=== PATIENT | female | born 1970 | race Caucasian/White ===

== ENCOUNTER → 2020-02-11 | Outpatient (CLI) | payer OTHER ==
[2020-02-11 13:54] VITALS: BP 140/86; PULSE 80; TEMP 98.1; BMI 36.6
--- NOTE | 2020-02-11 15:26 | FL ---
Barium swallow HISTORY: Dysphasia 1 minutes fluoroscopy time, 9 intraoperative images document the procedure Patient was given 1 ounce of Visipaque orally and attention was directed to the esophagus and surgica l bed. There is no obstruction to flow. No extrinsic or intrinsic esophageal lesion. Patient shows post maurizio buzz sleeve change. No evident leak. Surgical clips incidentally noted in the right upper quadrant. IMPRESSION: Postop changes. No obstruction or leak.
--- NOTE | 2020-02-11 15:56 | P.HPBAR ---
Bariatric H&P - History & Physicial H&P Date: 02/11/20 History & Physicial: Visit/CC: sleeve follow up Patient initial contact: Initial weight: Initial weight in pounds: Height: 5 ft 3 in Initial BMI: Last weight: Current weight: 93.894 kg Current weight in pounds: 207.00 Current BMI: 36.6 [place] body weight (based on NIH guidelines): 52.163 kg Excess body weight loss: The patient is a 49 year-old F who presents for Bariatric Assessment. Patient presents today for sleeve gastrectomy follow-up. She is not been seen many years. She doesn't know when her sleeve was performed. She's had some mild GERD. Past Medical History Past Medical History: Cancer, Diabetes Mellitus Additional Past Medical History / Comment(s): Patient reports she had a benign tumor on her right breast that resulted in a lumpectomy. History of Any Multi-Drug Resistant Organisms: None Reported Past Surgical History: Bariatric Surgery, Breast Surgery, Cholecystectomy, Orthopedic Surgery, Tubal Ligation Additional Past Surgical History / Comment(s): Lap Band in 2011, Gallbladder removal, Right breast lumpectomy, left shoulder surgery. left knee surgery l thumb surgery lap band removal/sleeve gastrectomy Past Anesthesia/Blood Transfusion Reactions: No Reported Reaction Past Psychological History: Anxiety, Depression Smoking Status: Never smoker Past Alcohol Use History: None Reported Past Drug Use History: None Reported Surgical - Exam Vital Signs Temp Pulse BP 98.1 F 80 140/86 02/11/20 13:51 02/11/20 13:51 02/11/20 13:51 - General well developed, well nourished, no distress - Eyes PERRL - ENT normal pinna - Neck no masses - Respiratory normal expansion - Cardiovascular Rhythm: regular - Abdomen Abdomen: soft, non tender Bariatric Assessment & Plan Plan: Status post sleeve yesterday. Patient is unable to give any medical history of what her sleeve was performed. The patient will undergo esophagram and EGD. She'll follow-up in clinic in 4 weeks. Patient's upper GI was reviewed. Her sleeve appears to be without evidence of obstruction. She'll be scheduled for EGD and HIDA scan Bariatric Checklist Checklist: Plan: Checklist: EGD: 1. Hiatal hernia: 2. H. Pylori: HgbA1c: Vitamin D: Smoking: Never smoker Primary care physician referral: cuca teresa Psychiatry clearance: Cardiology clearance: Sleep study: Diet journal: VTE risk score: VTE risk level: Rehab needs at discharge:
== END | disposition home or self-care (01) ==
LOC: BARWHC3 13:32
PROVIDERS: ATTEND Surgery
DX: Z48.815 Encounter for surgical aftercare following surgery on the digestive system (principal); Z90.49 Acquired absence of other specified parts of digestive tract; K21.9 Gastro-esophageal reflux disease without esophagitis; R13.10 Dysphagia, unspecified; Z98.84 Bariatric surgery status; Z98.51 Tubal ligation status; Z98.890 Other specified postprocedural states
CPT/HCPCS: 74220; G0463; 99211

== ENCOUNTER 2020-02-28 10:34 | Day surgery (SDC) | payer OTHER ==
[2020-02-27 09:38] VITALS: BMI 35.4
[~2020-02-28 10:34] MED LIST: LACTATED RINGERS 1,000 ML IV SCH
[2020-02-28] MEDS ORDERED: LACTATED RINGERS 1,000 ML IV ONE (10:47)
[2020-02-28 10:58] VITALS: RESP 16; TEMP 98.1
[2020-02-28] MEDS ORDERED: fentaNYL (PF) 50 MCG/ML 2 ML AMP ONE (11:21)
[2020-02-28] MEDS ORDERED: MIDAZOLAM 2 MG/2 ML VIAL ONE (11:21)
[2020-02-28] MEDS ORDERED: PROPOFOL 10 MG/ML 20 ML VIAL IV ONE (11:21)
--- NOTE | 2020-02-28 11:23 | P.GSHP ---
History of Present Illness H&P Date: 02/28/20 Chief Complaint: GERD, morbid obesity Is a 49-year-old female presents today for EGD. Patient currently undergoing workup for sleeve gastrectomy. She's had with GERD. Her BMI is 36 Past Medical History Past Medical History: Hyperlipidemia, Hypertension Additional Past Medical History / Comment(s): Patient reports she had a benign tumor on her right breast that resulted in a lumpectomy. History of Any Multi-Drug Resistant Organisms: None Reported Past Surgical History: Bariatric Surgery, Breast Surgery, Cholecystectomy, Orthopedic Surgery, Tubal Ligation Additional Past Surgical History / Comment(s): Lap Band in 2011, , Right breast lumpectomy, left shoulder surgery. left knee surgery, LT thumb surgery, lap band removal/sleeve gastrectomy Past Anesthesia/Blood Transfusion Reactions: No Reported Reaction Smoking Status: Never smoker - Past Family History Mother Family Medical History: No Reported History Medications and Allergies Home Medications Medication Instructions Recorded Confirmed Type ARIPiprazole [Abilify] 10 mg PO DAILY #30 tab 03/04/14 02/28/20 Rx Benztropine Mesylate [Cogentin] 0.5 mg PO DAILY 02/27/20 02/28/20 History Cholecalciferol [Vitamin D3 (25 2,000 unit PO DAILY 02/27/20 02/28/20 History Mcg = 1000 Iu)] Doxepin HCl 50 mg PO HS 02/27/20 02/28/20 History FLUoxetine HCL [PROzac] 80 mg PO DAILY 02/27/20 02/28/20 History Losartan [Cozaar] 25 mg PO DAILY 02/27/20 02/28/20 History Simvastatin [Zocor] 5 mg PO DAILY 02/27/20 02/28/20 History buPROPion XL [Wellbutrin Xl] 150 mg PO DAILY 02/27/20 02/28/20 History Allergies Allergy/AdvReac Type Severity Reaction Status Date / Time citalopram hydrobromide Allergy SUICIDAL Verified 02/28/20 10:59 [From Celexa] naltrexone HCl [From Revia] Allergy Rash/Hives Verified 02/28/20 10:59 nitrofurantoin Allergy FACE Verified 02/28/20 10:59 [From Macrobid] SWELLING nitrofurantoin Allergy FACE Verified 02/28/20 10:59 macrocrystalline SWELLING [From Macrobid] Surgical - Exam Vital Signs Temp Pulse Resp BP Pulse Ox 98.1 F 71 16 139/60 96 02/28/20 10:57 02/28/20 10:57 02/28/20 10:57 02/28/20 10:57 02/28/20 10:57 - General well developed, well nourished, no distress - Eyes PERRL - ENT normal pinna - Neck no masses - Respiratory normal expansion - Cardiovascular Rhythm: regular - Abdomen Abdomen: soft, non tender Assessment and Plan Assessment: GERD Morbid obesity We'll perform EGD.
--- NOTE | 2020-02-28 11:32 | P.OP ---
Date of Procedure: 02/28/20 Preoperative Diagnosis: GERD Postoperative Diagnosis: mild antral gastritis Mild esophagitis No evidence of sleeve stricture Procedure(s) Performed: EGD Anesthesia: MAC Surgeon: Jonnie Rosario Pathology: other (Antrum, esophagus) Condition: stable Disposition: PACU Description of Procedure: The patient's placed on the endoscopy table in the lateral position. She received IV sedation. The gastro-placed oropharynx passed in the esophagus and stomach. Scope was then placed through the pylorus. First and second portion of the duodenum appeared normal. Scope was brought back the antrum this appeared mildly inflamed. A biopsies performed. Scope was then brought back through the gastric sleeve. There is known to obstruction or stricture the sleeve. The GE junction was at 40 cms. The distal esophagus appeared inflamed a biopsies performed. The proximal esophagus appeared normal. Scope was brought patient.
[2020-02-28] MEDS ORDERED: IV FLUID CONTINUATION 1,000 ML IV ONE (11:36)
[2020-02-28 11:45] VITALS: BP 132/83
[2020-02-28 11:57] VITALS: PULSE 76
--- NOTE | 2020-03-03 09:01 | CDI ---
Date: 03.03.20 CDS/Barn Hand Name: Livier Copeland Phone: If any questions, call Jolynn Bean Director Of People at [phone] Patient Name: Sienna Walker Admit Date: 02.28.20 Discharge Date: 02.28.20 ATTENTION: The [facility] Coding Staff appreciate your assistance in clarifying documentation. Please respond to the clarification below the line at the bottom and electronically sign. The [facility] Coding staff will review the response and follow-up if needed. Please note: Queries are made part of the Legal Health Record. If you have any questions, please contact the Director Of People. Dear In your documentation for the colonoscopy, you only documented There is known to obstruction or stricture the sleeve. Please clarify whether there were obstructions or strictures. Thank you for your kind consideration. \ There was no obstruction of the sleeve on EGD. MTDD
== END 2020-02-28 12:42 | disposition home or self-care (01) ==
LOC: ORWHC2ENDO 10:34
PROVIDERS: ATTEND Surgery
DX: K21.0 Gastro-esophageal reflux disease with esophagitis (principal); K29.50 Unspecified chronic gastritis without bleeding; R89.7 Abnormal histological findings in specimens from other organs, systems and tissues; E11.9 Type 2 diabetes mellitus without complications; E78.5 Hyperlipidemia, unspecified; I10 Essential (primary) hypertension; K08.109 Complete loss of teeth, unspecified cause, unspecified class; F41.9 Anxiety disorder, unspecified; F32.9 Major depressive disorder, single episode, unspecified; E66.01 Morbid (severe) obesity due to excess calories; Z68.36 Body mass index [BMI] 36.0-36.9, adult; Z98.84 Bariatric surgery status; Z88.8 Allergy status to other drugs, medicaments and biological substances; Z88.1 Allergy status to other antibiotic agents; Z98.890 Other specified postprocedural states; Z90.49 Acquired absence of other specified parts of digestive tract; Z98.51 Tubal ligation status; Z79.899 Other long term (current) drug therapy
CPT/HCPCS: 81025; 88305; 43239; J2250; J3010; J2704

== ENCOUNTER → 2020-03-17 | Outpatient (CLI) | payer OTHER ==
[2020-03-17 13:06] VITALS: BP 141/83; PULSE 76; RESP 18; TEMP 98.1; BMI 36.1
--- NOTE | 2020-03-17 14:14 | P.HPBAR ---
Bariatric H&P - History & Physicial H&P Date: 03/17/20 History & Physicial: Visit/CC: EGD follow up Patient initial contact: Initial weight: Initial weight in pounds: Height: 5 ft 3 in Initial BMI: Last weight: Current weight: 92.533 kg Current weight in pounds: 204.00 Current BMI: 36.1 [place] body weight (based on NIH guidelines): 52.163 kg Excess body weight loss: The patient is a 49 year-old F who presents for Bariatric Assessment. Patient presents today for gastric sleeve follow-up. She has had some complaints of nausea and GERD. Her recent esophagram is normal. Her EGD was normal as well. Past Medical History Past Medical History: Hyperlipidemia, Hypertension Additional Past Medical History / Comment(s): Patient reports she had a benign tumor on her right breast that resulted in a lumpectomy. History of Any Multi-Drug Resistant Organisms: None Reported Past Surgical History: Bariatric Surgery, Breast Surgery, Cholecystectomy, Orthopedic Surgery, Tubal Ligation Additional Past Surgical History / Comment(s): Lap Band in 2011, , Right breast lumpectomy, left shoulder surgery. left knee surgery, LT thumb surgery, lap band removal/sleeve gastrectomy Past Anesthesia/Blood Transfusion Reactions: No Reported Reaction Past Psychological History: Anxiety, Depression Smoking Status: Never smoker Past Alcohol Use History: None Reported Past Drug Use History: None Reported - Past Family History Mother Family Medical History: No Reported History Surgical - Exam Vital Signs Temp Pulse Resp BP 98.1 F 76 18 141/83 03/17/20 13:04 03/17/20 13:04 03/17/20 13:04 03/17/20 13:04 - General well developed, well nourished, no distress - Eyes PERRL - ENT normal pinna - Neck no masses - Respiratory normal expansion - Cardiovascular Rhythm: regular - Abdomen Abdomen: soft, non tender Bariatric Assessment & Plan Plan: GERD and nausea. Patient will be observed. She will keep a food diary to see which foods bother her. She'll follow-up in 4 weeks. Bariatric Checklist Checklist: Plan: Checklist: EGD: 1. Hiatal hernia: 2. H. Pylori: HgbA1c: Vitamin D: Smoking: Never smoker Primary care physician referral: cuca teresa Psychiatry clearance: Cardiology clearance: Sleep study: Diet journal: VTE risk score: VTE risk level: Rehab needs at discharge:
== END | disposition home or self-care (01) ==
LOC: BARWHC3 12:19
PROVIDERS: ATTEND Surgery
DX: Z48.815 Encounter for surgical aftercare following surgery on the digestive system (principal); Z98.84 Bariatric surgery status; K21.9 Gastro-esophageal reflux disease without esophagitis
CPT/HCPCS: 99211

== ENCOUNTER → 2020-09-12 | Outpatient (CLI) | payer OTHER ==
[2020-09-12 14:38] VITALS: BP 134/88; PULSE 81; RESP 18; TEMP 98.2
--- NOTE | 2020-09-12 15:02 | P.GSHP ---
History of Present Illness H&P Date: 09/12/20 Chief Complaint: abnormal mammogram, mastodynia Sienna is a 49-year-old white female seen in consultation for Ariana Mendez regarding bilateral breast pain as well as a radiographic abnormality of a 5 mm nodule in the right breast. Mammogram was performed on . This revealed a 5 mm nodule in the right breast no lesions of concern were noted in the left breast. An ultrasound of the right breast was recommended. Ultrasound was performed on the same date which revealed at the 9 o'clock position hypoechoic area 0.5 cm in size. At the 11 o'clock position there was a 0. centimeter lesion. These were felt to be probably benign in 6 month follow-up exam was re commended. Patient approximately 2 months ago began having persistent pain in the 12 o'clock position of both breasts which would radiate to the nipples. Since that time the pain has become more sporadic. The pain continues to be located on both sides. The pain occurs it seems to last for hours at a time. The patient states that she makes it better by relaxing. The patient does not feel any lumps masses or nodules in either breast. She is not complaining of any nipple discharge. She has not had any recent trauma or infection in the breast. She has had a lump removed from her right breast which was not cancer in the remote past. Caffeine: coffee and pop throughout the day nicotine: She is exposed to secondhand smoke she does not smoke or cell theobromine: weekly hormones: none; being evaluated at [facility] regarding elevated hormones, unsure of which hormones high, ? PTH Family history: none Hormonal history: Menarche: 13 , breast fed: none, age at first : 17 menopause: periods stopped about 2 years ago BCP: 3 months, then had an implant in her arm hormones: none Surgical history: 1. left knee 2. left shoulder 3. left thumb 4. gallbladder 5. gastric sleeve 6. uterine ablation 7. breast biopsy right 8. tubal 9. 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 Social History: smoke: second hand smoke/ she is around it a lot alcohol: none drugs: Marijuana daily, for depression - Constitutional Constitutional: Denies chills, Denies fever - EENT Eyes: denies blurred vision, denies pain Ears: deny: decreased hearing, tinnitus Ears, nose, mouth and throat: Reports headache - Breasts Breasts: bilateral: as per HPI - Cardiovascular Cardiovascular: Denies chest pain, Denies shortness of breath - Respiratory Comment: exposed to second hand smoke - Gastrointestinal Gastrointestinal: Denies abdominal pain, Denies diarrhea, Denies nausea, Denies vomiting - Genitourinary (Female) Genitourinary: Reports kidney stones - Menstruation Menstruation: Reports postmenopausal - Musculoskeletal Comment: arthritis - Integumentary Integumentary: Reports pruritus, Reports rash - Neurological Neurological: Denies numbness, Denies weakness - Psychiatric Psychiatric: Reports anxiety, Reports depression - Endocrine Comment: ? hormone imbalance being seen at [facility] Endocrine: Reports fatigue, Reports weight change - Hematologic/Lymphatic Comment: none - Allergic/Immunologic Allergic/Immunologic: Reports as per HPI Past Medical History Past Medical History: Hyperlipidemia, Hypertension Additional Past Medical History / Comment(s): Patient reports she had a benign tumor on her right breast that resulted in a lumpectomy. History of Any Multi-Drug Resistant Organisms: None Reported Past Surgical History: Bariatric Surgery, Breast Surgery, Cholecystectomy, Orthopedic Surgery, Tubal Ligation Additional Past Surgical History / Comment(s): Lap Band in 2011, , Right breast lumpectomy, left shoulder surgery. left knee surgery, LT thumb surgery, lap band removal/sleeve gastrectomy Past Anesthesia/Blood Transfusion Reactions: No Reported Reaction Past Psychological History: Anxiety, Depression Smoking Status: Never smoker Past Alcohol Use History: None Reported Past Drug Use History: None Reported - Past Family History Mother Family Medical History: No Reported History Medications and Allergies Home Medications Medication Instructions Recorded Confirmed Type ARIPiprazole [Abilify] 10 mg PO DAILY #30 tab 03/04/14 09/12/20 Rx Benztropine Mesylate [Cogentin] 0.5 mg PO DAILY 02/27/20 09/12/20 History Cholecalciferol [Vitamin D3 (25 2,000 unit PO DAILY 02/27/20 09/12/20 History Mcg = 1000 Iu)] Doxepin HCl 50 mg PO HS 02/27/20 09/12/20 History FLUoxetine HCL [PROzac] 80 mg PO DAILY 02/27/20 09/12/20 History Losartan [Cozaar] 25 mg PO DAILY 02/27/20 09/12/20 History Simvastatin [Zocor] 5 mg PO DAILY 02/27/20 09/12/20 History buPROPion XL [Wellbutrin Xl] 150 mg PO DAILY 02/27/20 09/12/20 History Allergies Allergy/AdvReac Type Severity Reaction Status Date / Time citalopram hydrobromide Allergy SUICIDAL Verified 09/12/20 14:33 [From Celexa] naltrexone HCl [From Revia] Allergy Rash/Hives Verified 09/12/20 14:33 nitrofurantoin Allergy FACE Verified 09/12/20 14:33 [From Macrobid] SWELLING nitrofurantoin Allergy FACE Verified 09/12/20 14:33 macrocrystalline SWELLING [From Macrobid] sulfamethoxazole Allergy Hallucinati Unverified 09/12/20 14:33 [From Bactrim] ons trimethoprim [From Bactrim] Allergy Hallucinati Unverified 09/12/20 14:33 ons Surgical - Exam Vital Signs Temp Pulse Resp BP Pulse Ox 98.2 F 81 18 134/88 91 L 09/12/20 14:35 09/12/20 14:35 09/12/20 14:35 09/12/20 14:35 09/12/20 14:35 BMI 35.1 - General obese - Eyes normal ocular movement - ENT no hearing loss - Neck no masses, trachea midline - Respiratory normal expansion, normal respiratory effort, clear to auscultation - Cardiovascular Rhythm: regular Heart Sounds: normal: S1, S2 - Abdomen Abdomen: soft, non tender, no guarding, no rigid, no rebound - Integumentary normal turgor - Neurologic no disoriented, no combative - Musculoskeletal normal gait - Psychiatric oriented to time, oriented to person, oriented to place, speech is normal, memory intact breast exam: BRA: 40D inspection: Bilateral grade 3 ptosis Palpation: Right breast: Multiple positional exam fibrocystic changes, no dominant masses or nodules of concern Right axilla: No adenopathy of concern Left breast: Multi-positional exam fibrocystic changes, no dominant masses or nodules of concern Left axilla: No adenopathy of concern Results Mammogram and ultrasound report reviewed Assessment and Plan Assessment: Impression: 1. Mammographic abnormality and ultrasound abnormality right breast most likely benign BIRADS 3 2. Fibrocystic breast changes 3. Mastodynia 4. Patient with high caffeine intake 5. Nothing at this time which would warrant interventional biopsy 6. depression Plan: 1. Repeat right breast mammogram and ultrasound in 6 months 2. Encouraged to abstain from caffeine 3. [place] 4. Patient is being seen at [facility] regarding hormonal imbalance CC: Ariana Pantoja Discussed causes of fibrocystic breast discomfort. She is given a booklet regarding this. She is going to try to decrease her caffeine intake and have encouraged her to try [place]. She will follow up in 6 months when she has a repeat mammogram and ultrasound. encounter 55 minutes, > 50% of time in planning and counselling
== END | disposition home or self-care (01) ==
LOC: WWCWWP 13:39
PROVIDERS: ATTEND Surgery
DX: Z53.9 Procedure and treatment not carried out, unspecified reason (principal)

== ENCOUNTER 2022-11-25 10:23 | Day surgery (SDC) | payer OTHER ==
[2022-11-25] MEDS ORDERED: LIDOCAINE 1% (10MG/ML) FOR IV START INTRADERMA PRN (10:49)
[2022-11-25] MEDS ORDERED: LACTATED RINGERS 1,000 ML IV SCH (10:49)
[2022-11-25 11:09] LABS: Glucose,Whole Blood 118 mg/dL (70-110)
[2022-11-25 11:11] VITALS: TEMP 97.8
[2022-11-25] MEDS ORDERED: PROPOFOL 10 MG/ML 20 ML VIAL IV ONE (11:40)
--- NOTE | 2022-11-25 11:50 | P.GSHP ---
History of Present Illness H&P Date: 11/25/22 Chief Complaint: Screening colonoscopy This a 52-year-old female presents today for screening colonoscopy. Patient denies a significant GI complaints. Past Medical History Past Medical History: Hyperlipidemia, Hypertension Additional Past Medical History / Comment(s): Patient reports she had a benign tumor on her right breast that resulted in a lumpectomy. History of Any Multi-Drug Resistant Organisms: None Reported Past Surgical History: Bariatric Surgery, Breast Surgery, Cholecystectomy, Orthopedic Surgery, Tubal Ligation Additional Past Surgical History / Comment(s): Lap Band in 2011, , Right breast lumpectomy, left shoulder surgery. left knee surgery, LT thumb surgery, lap band removal/sleeve gastrectomy Past Anesthesia/Blood Transfusion Reactions: No Reported Reaction Smoking Status: Never smoker - Past Family History Mother Family Medical History: No Reported History Medications and Allergies Home Medications Medication Instructions Recorded Confirmed Type Losartan [Cozaar] 25 mg PO DAILY 02/27/20 11/25/22 History Simvastatin [Zocor] 5 mg PO DAILY 02/27/20 11/25/22 History buPROPion XL [Wellbutrin Xl] 150 mg PO DAILY 02/27/20 11/25/22 History Allergies Allergy/AdvReac Type Severity Reaction Status Date / Time citalopram hydrobromide Allergy SUICIDAL Verified 11/25/22 10:50 [From Celexa] naltrexone HCl [From Revia] Allergy Rash/Hives Verified 11/25/22 10:50 nitrofurantoin Allergy FACE Verified 11/25/22 10:50 [From Macrobid] SWELLING nitrofurantoin Allergy FACE Verified 11/25/22 10:50 macrocrystalline SWELLING [From Macrobid] sulfamethoxazole Allergy Hallucinati Unverified 11/25/22 10:50 [From Bactrim] ons trimethoprim [From Bactrim] Allergy Hallucinati Unverified 11/25/22 10:50 ons Surgical - Exam Vital Signs Temp Pulse Resp BP Pulse Ox 97.8 F 67 18 128/62 97 11/25/22 11:08 11/25/22 11:08 11/25/22 11:08 11/25/22 11:08 11/25/22 11:08 - General well developed, well nourished, no distress - Eyes PERRL - ENT normal pinna - Neck no masses - Respiratory normal expansion - Cardiovascular Rhythm: regular - Abdomen Abdomen: soft, non tender Results - Labs Abnormal Lab Results - Last 24 Hours (Table) 11/25/22 Range/Units 11:06 POC Glucose (mg/dL) 118 H (70-110) mg/dL Assessment and Plan Plan: We'll perform screening colonoscopy
--- NOTE | 2022-11-25 11:51 | P.OP ---
Date of Procedure: 11/25/22 Preoperative Diagnosis: Screening colonoscopy Postoperative Diagnosis: Poor colon prep Procedure(s) Performed: Colonoscopy Anesthesia: MAC Surgeon: Jonnie Rosario Pathology: none sent Condition: stable Disposition: PACU Description of Procedure: Patient's placed on the endoscopy table in the lateral position. She received IV sedation. Digital rectal exam performed. This revealed a large amount liquid stool. The possible colonoscope was then placed patient anus and passed with colon. There was a large amount of liquid brown stool which prevented the colonoscopy for be performed. This point scope withdrawn. The visualized rectum appeared normal. Scope withdrawn for patient. Patiently to be reprepped for colonoscopy.
[2022-11-25 12:09] VITALS: BP 115/76; PULSE 58; RESP 15
== END 2022-11-25 12:40 | disposition home or self-care (01) ==
LOC: ORWHC2ENDO 10:23
PROVIDERS: ATTEND Surgery
DX: Z12.11 Encounter for screening for malignant neoplasm of colon (principal); I10 Essential (primary) hypertension; E78.5 Hyperlipidemia, unspecified; Z90.89 Acquired absence of other organs; Z90.49 Acquired absence of other specified parts of digestive tract; Z98.51 Tubal ligation status; Z98.84 Bariatric surgery status; Z88.2 Allergy status to sulfonamides; Z88.1 Allergy status to other antibiotic agents; Z79.899 Other long term (current) drug therapy
CPT/HCPCS: 81025; 45378; J2704

== ENCOUNTER 2024-08-18 12:09 | Inpatient (IN) | payer MEDICAID, OTHER ==
--- NOTE | 2024-08-18 12:59 | ED ---
General Adult HPI - General Chief complaint: Psychiatric Symptoms Stated complaint: Mental Health Time Seen by Provider: 08/18/24 12:30 Source: patient, RN notes reviewed, old records reviewed Mode of arrival: ambulatory Limitations: no limitations - History of Present Illness Initial comments: This is a 53-year-old female who presents to the emergency department complaining that she is depressed anxious and wants to kill herself. Patient states if she were to kill her so she take all of her pills. Patient states she has a new psychiatrist whom she speaks with via video chat and the psychiatrist wanted to come in to be evaluated for possible admission. Patient denies any physical complaints. Patient denies any drinking. Patient denies any drug use. Patient denies any fever chills or cough or patient had difficulty breathing or chest pain. Patient denies abdominal pain nausea vomiting diarrhea - Related Data Home Medications Medication Instructions Recorded Confirmed Escitalopram Oxalate [Lexapro] 10 mg PO HS 08/18/24 08/18/24 Gabapentin [Neurontin] 400 mg PO BID@0900,1400 08/18/24 08/18/24 Gabapentin [Neurontin] 800 mg PO HS 08/18/24 08/18/24 HYDROcodone/APAP 10-325MG [[place] 1 tab PO Q6HR 08/18/24 08/18/24 10-325] methocarbamoL [Robaxin-750] 750 mg PO Q8H 08/18/24 08/18/24 Allergies Allergy/AdvReac Type Severity Reaction Status Date / Time naltrexone HCl [From Revia] Allergy Rash/Hives Verified 08/18/24 15:01 sulfamethoxazole Allergy Face Verified 08/18/24 15:01 [From Bactrim] Swelling trimethoprim [From Bactrim] Allergy Face Verified 08/18/24 15:01 Swelling citalopram hydrobromide AdvReac SUICIDAL Verified 08/18/24 15:01 [From Celexa] nitrofurantoin AdvReac Hallucinati Verified 08/18/24 15:01 [From Macrobid] ons nitrofurantoin AdvReac Hallucinati Verified 08/18/24 15:01 macrocrystalline ons [From Macrobid] Review of Systems ROS Statement: Those systems with pertinent positive or pertinent negative responses have been documented in the HPI. ROS Other: All systems not noted in ROS Statement are negative. Past Medical History Past Medical History: Hyperlipidemia, Hypertension Additional Past Medical History / Comment(s): Patient reports she had a benign tumor on her right breast that resulted in a lumpectomy. History of Any Multi-Drug Resistant Organisms: None Reported Past Surgical History: Bariatric Surgery, Breast Surgery, Cholecystectomy, Orthopedic Surgery, Tubal Ligation Additional Past Surgical History / Comment(s): Lap Band in 2012, , Right breast lumpectomy, left shoulder surgery. left knee surgery, LT thumb surgery, lap band removal/sleeve gastrectomy Past Anesthesia/Blood Transfusion Reactions: No Reported Reaction Past Psychological History: Anxiety, Depression Smoking Status: Never smoker Past Alcohol Use History: None Reported Past Drug Use History: None Reported - Past Family History Mother Family Medical History: No Reported History General Exam - General Exam Comments Initial Comments: GENERAL: Patient is well-developed and well-nourished. Patient is nontoxic and well- hydrated and is in no acute distress. ENT: Neck is soft and supple. No significant lymphadenopathy is noted. Oropharynx is clear. Moist mucous membranes. Neck has full range of motion without eliciting any pain. EYES: The sclera were anicteric and conjunctiva were pink and moist. Extraocular movements were intact and pupils were equal round and reactive to light. Eyelids were unremarkable. PULMONARY: Unlabored respirations. Good breath sounds bilaterally. No audible rales rhonchi or wheezing was noted. CARDIOVASCULAR: There is a regular rate and rhythm without any murmurs gallops or rubs. ABDOMEN: Soft and nontender with normal bowel sounds. SKIN: Skin is clear with no lesions or rashes and otherwise unremarkable. NEUROLOGIC: Patient is alert and oriented x3. Cranial nerves II through XII are grossly intact. Motor and sensory are also intact. Normal speech, volume and content. Symmetrical smile. MUSCULOSKELETAL: Normal extremities with adequate strength and full range of motion. LYMPHATICS: No significant lymphadenopathy is noted PSYCHIATRIC: Patient is tearful throughout her interview and she is talking about killing herself by taking pills. Patient does states she is very depressed lately Limitations: no limitations Course Vital Signs 08/18/24 12:26 Temperature 98.8 F Pulse Rate 53 L Respiratory 18 Rate Blood Pressure 153/86 O2 Sat by Pulse 97 Oximetry Medical Decision Making - Medical Decision Making Was pt. sent in by a medical professional or institution (, PA, SPIKE MAKER, urgent care, hospital, or fdc...) When possible be specific @ -No Did you speak to anyone other than the patient for history (EMS, parent, family, police, friend...)? What history was obtained from this source @ -No Did you review nursing and triage notes (agree or disagree)? Why? @ -I reviewed and agree with nursing and triage notes Were old charts reviewed (outside hosp., previous admission, EMS record, old EKG, old radiological studies, urgent care reports/EKG's, fdc records)? Report findings @ -No old charts were reviewed Differential Diagnosis? @ -Differential Mental Health Depression, anxiety, bipolar, psychosis, schizophrenia, borderline personality, situational depression, adjustment disorder, behavioral disorder, brain tumor, malingering, substance abuse, encephalopathy, medication reaction, dementia, hypothyroidism, degenerative neurologic disorder, lupus.... This is not meant to be all-inclusive list EKG interpreted by me (3pts min.). @ -As above X-rays interpreted by me (1pt min.). @ -None done CT interpreted by me (1pt min.). @ -None done U/S interpreted by me (1pt. min.). @ -None done What testing was considered but not performed or refused? (CT, X-rays, U/S, labs)? Why? @ -None What meds were considered but not given or refused? Why? @ -None Did you discuss the management of the patient with other professionals (professionals i.e. , PA, SPIKE MAKER, lab, RT, psych nurse, social work therapist, loading inspector, teacher, tax revenue officer, wrapper caser)? Give summary @ -EPS evaluated the patient determined the patient needed to be admitted patient was willing to sign and Was smoking cessation discussed for >3mins.? @ -No Was critical care preformed (if so, how long)? @ -No Were there social determinants of health that impacted care today? How? (Homelessness, low income, unemployed, alcoholism, drug addiction, transportation, low edu. Level, literacy, decrease access to med. care, prison, rehab)? @ -No Was there de-escalation of care discussed even if they declined (Discuss DNR or withdrawal of care, Hospice)? DNR status @ -No What co-morbidities impacted this encounter? (DM, HTN, Smoking, COPD, CAD, Cancer, CVA, ARF, Chemo, Hep., AIDS, mental health diagnosis, sleep apnea, morbid obesity)? @ -None Was patient admitted / discharged? Hospital course, mention meds given and route, prescriptions, significant lab abnormalities, going to OR and other pertinent info. @ -Patient will be admitted to the psychiatric sutton because of suicidal ideations Undiagnosed new problem with uncertain prognosis? @ -No Drug Therapy requiring intensive monitoring for toxicity (Heparin, Nitro, Insulin, Cardizem)? @ -No Were any procedures done? @ -No Diagnosis/symptom? @ -Suicidal ideations Acute, or Chronic, or Acute on Chronic? @ -Acute Uncomplicated (without systemic symptoms) or Complicated (systemic symptoms)? @ -Duplicated Side effects of treatment? @ -No Exacerbation, Progression, or Severe Exacerbation? @ -No Poses a threat to life or bodily function? How? (Chest pain, USA, MS, pneumonia, PE, COPD, DKA, ARF, appy, cholecystitis, CVA, Diverticulitis, Homicidal, Suicidal, threat to staff... and all critical care pts) @ -Yes this could lead to suicide and Disposition Clinical Impression: Depression, Suicidal ideation Disposition: ADMITTED IP TO THIS HOSP Referrals: Nonstaff,Physician [REFERRING] - 1-2 days Time of Disposition: 15:16
[2024-08-18 15:36] LABS: Appearance,Urine Cloudy (Clear); Bacteria,Urine Rare /hpf; Bilirubin,Urine Negative (Negative); Blood,Urine Negative (Negative); Color,Urine Yellow; Glucose,Urine (UA) Negative (Negative); Ketones,Urine Negative (Negative); Leukocyte Esterase,Urine Negative (Negative); Mucus,Urine Few /hpf; Nitrite,Urine Negative (Negative); Protein,Urine Negative (Negative); RBC,Urine 2 /hpf (0-5); Specific Gravity,Urine 1.024 (1.001-1.035); Squamous Epithelial Cell,Urine 10 /hpf (0-4); WBC,Urine 3 /hpf (0-5)
[2024-08-18 15:43] LABS: Amphetamine Screen,Urine Not Detected (NotDetected); Barbiturate Screen,Urine Not Detected (NotDetected); Benzodiazepines Screen,Urine Not Detected (NotDetected); Cocaine Screen,Urine Not Detected (NotDetected); Methadone Screen, Urine Not Detected (NotDetected); Opiate Screen,Urine Detected (NotDetected); Phencyclidine Screen,Urine Not Detected (NotDetected); Tricyclic Antidepressant,Urine Not Detected (NotDetected); Urn Cannabinoid Scrn Not Detected (NotDetected)
[2024-08-18 15:44] LABS: Oxycodone Screen, Urine Not Detected (NotDetected)
[2024-08-18] MEDS: HYDROcodone/APAP 10-325MG 1 EACH TAB PO ONE (20:07)
[2024-08-18] MEDS ORDERED: hydrOXYzine HCL 50 MG/ML 1 ML VIAL IM PRN (20:39)
[2024-08-18] MEDS ORDERED: MAG HYDROX/AL HYDROX/SIMETH 355 ML BOTTLE PO PRN (20:39)
[2024-08-18] MEDS ORDERED: ACETAMINOPHEN TAB 325 MG TAB PO PRN (20:39)
[2024-08-18] MEDS ORDERED: hydrOXYzine HCL 25 MG TAB PO PRN (20:39)
[2024-08-18] MEDS ORDERED: MAGNESIUM HYDROXIDE 2,400 MG/30 ML CUP PO PRN (20:39)
[2024-08-18] MEDS ORDERED: IBUPROFEN 600 MG TAB PO PRN (20:39)
[2024-08-18] MEDS: GABAPENTIN 400 MG CAP PO SCH (21:02)
[2024-08-18] MEDS: ESCITALOPRAM 10 MG TAB PO SCH (21:02)
[2024-08-18] MEDS: methocarbamoL 750 MG TAB PO SCH (21:10)
[2024-08-19] MEDS: GABAPENTIN 400 MG CAP PO SCH (07:59)
[2024-08-19] MEDS: NICOTINE 21MG/24HR PATCH TRANSDERM SCH (07:59)
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
[2024-08-19 12:25] LABS: Basophils % (A) 0 %; Eosinophils # (A) 0.1 k/uL (0-0.7); Eosinophils % (A) 2 %; HCT 41.2 % (34.0-46.0); HGB 13.4 gm/dL (11.4-16.0); Lymphocytes # (A) 1.3 k/uL (1.0-4.8); Lymphocytes % (A) 21 %; MCH 29.8 pg (25.0-35.0); MCHC 32.5 g/dL (31.0-37.0); MCV 91.6 fL (80.0-100.0); Mean Platelet Volume 8.7; Monocytes # (A) 0.3 k/uL (0-1.0); Monocytes % (A) 4 %; Neutrophils # (A) 4.3 k/uL (1.3-7.7); Neutrophils % (A) 71 %; Platelet Count 190 k/uL (150-450); RDW 12.7 % (11.5-15.5); WBC 6.1 k/uL (3.8-10.6)
[2024-08-19 12:44] LABS: ALT 12 U/L (4-34); AST 19 U/L (14-36); African American GFR (CKD) >90 (>60 ml/min/1.73 sqM); Albumin 3.9 g/dL (3.5-5.0); Alkaline Phosphatase 69 U/L (38-126); Anion Gap 3 mmol/L; Bilirubin,Unconjugated 0.3 mg/dL (0.0-1.1); Blood Urea Nitrogen 15 mg/dL (7-17); Calcium 9.3 mg/dL (8.4-10.2); Carbon Dioxide 35 mmol/L (22-30); Chloride 102 mmol/L (98-107); Glucose 140 mg/dL (74-99); Non-African American GFR(CKD) >90 (>60 ml/min/1.73 sqM); Sodium 140 mmol/L (137-145); Total Bilirubin 0.3 mg/dL (0.2-1.3); Total Protein 6.3 g/dL (6.3-8.2)
[2024-08-19] MEDS: HYDROcodone/APAP 10-325MG 1 EACH TAB PO PRN (13:23)
--- NOTE | 2024-08-19 17:22 | P.CONS ---
History of Present Illness - Reason for Consult Consult date: 08/19/24 Medical management Requesting physician: Mukund Stallings - Chief Complaint Depression - History of Present Illness This is a 53-year-old patient, Dr. Pina. Patient presented with severe depression. She is a long-term drug diagnosis of the same. But lately feeling more so. Not sleeping well. Appetite is not very good. Having suicidal ideation. Apparently her is in half-way. Patient chronically does pick at her skin. Denies any fever and chills. Patient has chronic pain in multiple joints. Including the back Review of systems: GEN.: Tired decreased appetite EYES: None HEENT: None NECK: None RESPIRATORY: None CARDIOVASCULAR: None GASTROINTESTINAL: None GENITOURINARY: None MUSCULOSKELETAL: None LYMPHATICS: None HEMATOLOGICAL: None PSYCHIATRY: Anxious and depressed NEUROLOGICAL: None Social history: Currently living alone. Did drink a bit excessive alcohol in the remote past. None currently. Apparently her current is in half-way. She been working different jobs. Has not worked since December of this year. Physical examination: VITAL SIGNS: 98.2, 83, 16, 107 x 74, 96% room air GENERAL: BMI 30.6, sitting the edge of the bed, depressed appearing. EYES: Pupils equal. Conjunctiva analisa l. DERMATOLOGICAL: Multiple areas of skin picking especially on the forehead HEENT: External appearance of nose and ears normal, oral cavity grossly normal. NECK: JVD not raised; masses not palpable. HEART: First and second heart sounds are normal; no edema. LUNGS: Respiratory rate normal; clear to auscultation. ABDOMEN: Soft, nontender, liver spleen not palpable, no masses palpable. PSYCH: Alert and oriented x3; mood and affect low l. MUSCULOSKELETAL:No Clubbing/cyanosis;muscles-grossly intact NEUROLOGICAL: Cranial nerves grossly intact; no facial asymmetry, power and sensation grossly intact. LYMPHATICS: No lymph nodes palpable in the axilla and neck INVESTIGATIONS, reviewed in the clinical context: August 19: White count 6.1 hemoglobin 13.4 platelets 190 sodium 140 potassium 4 creatinine 0.74 Assessment and plan: -Major depressive disorder recurrent. Severe without psychotic features Follow-up with psychiatry -Generalized anxiety disorder Follow-up with psychiatry -Obesity BMI 30.6 Weight loss measures -Chronic insomnia secondary Psychiatry disorder Hopefully with medications this will improve -Dermatotilomania, chronic Care was discussed with the patient. Thank you Dr. Stallings Past Medical History Past Medical History: Hyperlipidemia, Hypertension Additional Past Medical History / Comment(s): Patient reports she had a benign tumor on her right breast that resulted in a lumpectomy. History of Any Multi-Drug Resistant Organisms: None Reported Past Surgical History: Bariatric Surgery, Breast Surgery, Cholecystectomy, Orthopedic Surgery, Tubal Ligation Additional Past Surgical History / Comment(s): Lap Band in 2012, , Right breast lumpectomy, left shoulder surgery. left knee surgery, LT thumb surgery, lap band removal/sleeve gastrectomy Past Anesthesia/Blood Transfusion Reactions: No Reported Reaction Past Psychological History: Anxiety, Depression Smoking Status: Never smoker Past Alcohol Use History: None Reported Past Drug Use History: None Reported - Past Family History Mother Family Medical History: No Reported History Medications and Allergies Home Medications Medication Instructions Recorded Confirmed Type Escitalopram Oxalate [Lexapro] 10 mg PO HS 08/18/24 08/18/24 History Gabapentin [Neurontin] 400 mg PO BID@0900,1400 08/18/24 08/18/24 History Gabapentin [Neurontin] 800 mg PO HS 08/18/24 08/18/24 History HYDROcodone/APAP 10-325MG [[place] 1 tab PO Q6HR 08/18/24 08/18/24 History 10-325] methocarbamoL [Robaxin-750] 750 mg PO Q8H 08/18/24 08/18/24 History Allergies Allergy/AdvReac Type Severity Reaction Status Date / Time naltrexone HCl [From Revia] Allergy Rash/Hives Verified 08/18/24 15:01 sulfamethoxazole Allergy Face Verified 08/18/24 15:01 [From Bactrim] Swelling trimethoprim [From Bactrim] Allergy Face Verified 08/18/24 15:01 Swelling citalopram hydrobromide AdvReac SUICIDAL Verified 08/18/24 15:01 [From Celexa] nitrofurantoin AdvReac Hallucinati Verified 08/18/24 15:01 [From Macrobid] ons nitrofurantoin AdvReac Hallucinati Verified 08/18/24 15:01 macrocrystalline ons [From Macrobid] Physical Exam Vitals: Vital Signs Temp Pulse Pulse Resp BP BP Pulse Ox 08/19/24 08:00 83 16 107/74 08/19/24 00:05 98.2 F 68 18 139/78 96 08/18/24 21:03 98.3 F 63 16 145/85 99 08/18/24 19:59 67 16 160/99 95 Intake and Output 08/19/24 08/19/24 08/19/24 06:59 14:59 22:59 Other: Weight 78.199 kg 78.3 kg Results CBC & Chem 7: 08/19/24 10:21 08/19/24 10:21 Labs: Abnormal Lab Results - Last 24 Hours (Table) 08/19/24 Range/Units 10:21 Carbon Dioxide 35 H (22-30) mmol/L Glucose 140 H (74-99) mg/dL
[2024-08-19] MEDS: MIRTAZAPINE 15 MG TAB PO SCH (20:39)
[2024-08-19 22:54] LABS: Chol/HDL Ratio 4.95 Ratio; LDL Cholesterol,Calculated 221.5 mg/dL (0.0-131.0); VLDL Calculation 19.54 mg/dL (5.00-40.00)
[2024-08-20 10:21] VITALS: BMI 30.5
--- NOTE | 2024-08-20 11:27 | P.PN ---
Progress Note - Text Progress Note Date: 08/20/24 Interval History: Patient was seen today and agreeable to speak to adjusto writer operator in the office. Patient states that she is still feeling a bit depressed, claims that her anxiety has been improving. States that she did come to the hospital because she was having suicidal thoughts. States that she was having difficulty with her relationship with her children, claims that her is now in retirement. Claims that the medications have been helping since being admitted, we spoke about increasing her Lexapro which she is okay with. Claims that she is sleeping through the night with the lot Remeron doing well, has an improving appetite. At this time she is denying any suicidal homicidal ideations intent or plan, denying any auditory or visual hallucinations. Not reporting any other side effects. MENTAL STATUS EXAM: General Appearance: Patient appears to be older than stated age is alert, di rectable, and attempts to cooperate. Patient appears to have fair hygiene and grooming. Behavior: Patient is seated without any agitated behavior. Attempts to cooperate Speech: Patient's speech is fluent and nonpressured. Mood/Affect: Patient reports their mood is depressed, improving mildly, affect is congruent Suicidality/Homicidality: Patient denies having any homicidal ideation intent or plan. Denying any suicidal ideations, no intent or plan Perceptions: Patient denies any visual hallucinations and denies any auditory hallucinations Though content/process: There is no evidence of any delusional thought content and thought process is linear and goal-directed. Memory and concentration: AOX3, grossly intact for the purposes of this session Judgment and insight: Fair IMPRESSIONS: Major depressive disorder, recurrent, severe, without psychotic features Generalized anxiety disorder R/o excoriation disorder PLAN: -Patient is admitted under voluntary status to [facility] for stabilization of psychiatric symptoms and safety. Patient signed adult voluntary form and medication consent and is placed in patient's chart. -Medications : Remeron 15 mg at bedtime for mood, appetite and sleep increase Lexapro 20 mg daily for depression -Vistaril PRN for anxiety/agitation -NRT-not needed -SW on board for discharge planning. Encourage patient to participate in groups to work on coping skills. hopeful for discharge tuesday if patient is improving psychiatrically.
[2024-08-20] MEDS: ESCITALOPRAM 20 MG TAB PO SCH (20:44)
[2024-08-21 06:52] VITALS: RESP 16; TEMP 97.5
--- NOTE | 2024-08-21 11:43 | P.PN ---
Progress Note - Text Progress Note Date: 08/21/24 Interval History: Patient was seen today and agreeable to speak to health underwriter. She appears to have an improvement in her hygiene and grooming today. States that her mood is still mildly depressed however improving. Claims that her anxiety is also improving. Did not report any problems with taking the increased dose of her Lexapro last night. States that she was able to sleep throughout the night. Only went to 1 group yesterday, will try to go to some groups today. She reports to having and improving appetite. At this time she is denying any suicidal homicidal ideations intent or plan, denying any auditory or visual hallucinations. Not reporting any other side effects. MENTAL STATUS EXAM: General Appearance: Patient appears to be older than stated age is alert, directable, and attempts to cooperate. Patient appears to have fair hygiene and grooming. Behavior: Patient is seated without any agitated behavior. Attempts to cooperate Speech: Patient's speech is fluent and nonpressured. Mood/Affect: Patient reports their mood is improving mildly, affect is congruent Suicidality/Homicidality: Patient denies having any homicidal ideation intent or plan. Denying any suicidal ideations, no intent or plan Perceptions: Patient denies any visual hallucinations and denies any auditory hallucinations Though content/process: There is no evidence of any delusional thought content and thought process is linear and goal-directed. Fairly concrete Memory and concentration: AOX3, grossly intact for the purposes of this session Judgment and insight: Fair IMPRESSIONS: Major depressive disorder, recurrent, severe, without psychotic features Generalized anxiety disorder R/o excoriation disorder PLAN: -Patient is admitted under voluntary status to [facility] for stabilization of psychiatric symptoms and safety. Patient signed adult voluntary form and medication consent and is placed in patient's chart. -Medications : Remeron 15 mg at bedtime for mood, appetite and sleep Lexapro 20 mg daily for depression/anxiety -Vistaril PRN for anxiety/agitation -NRT-not needed -SW on board for discharge planning. Encourage patient to participate in groups to work on coping skills. hopeful for discharge if patient is improving psychiatrically.
[2024-08-22 06:05] VITALS: PULSE 77
[2024-08-22 08:53] VITALS: BP 97/59
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
== END 2024-08-22 07:00 | disposition home or self-care (01) | DRG 751 ==
LOC: EC 12:09 → 3MHU 15:43
PROVIDERS: ADMIT Psychiatry & Neurology Psychiatry; ATTEND Psychiatry & Neurology Psychiatry
DX: F33.2 Major depressive disorder, recurrent severe without psychotic features (principal); F41.1 Generalized anxiety disorder; F42.4 Excoriation (skin-picking) disorder; R45.851 Suicidal ideations; G89.29 Other chronic pain; E66.9 Obesity, unspecified; F10.10 Alcohol abuse, uncomplicated; E78.5 Hyperlipidemia, unspecified; F51.04 Psychophysiologic insomnia; I10 Essential (primary) hypertension; Z60.4 Social exclusion and rejection; Z56.0 Unemployment, unspecified; Z88.2 Allergy status to sulfonamides; Z88.8 Allergy status to other drugs, medicaments and biological substances; Z88.9 Allergy status to unspecified drugs, medicaments and biological substances; Z68.30 Body mass index [BMI] 30.0-30.9, adult; Z91.51 Personal history of suicidal behavior; Z98.84 Bariatric surgery status; Z79.899 Other long term (current) drug therapy
CPT/HCPCS: 80053; 80061; 80306; 81001; 82075; 82248; 83036; 84443; 85025; 87636; 99285